=== PATIENT | female | born 1990 | race African-American/Black ===

== ENCOUNTER 2019-01-12 15:54 | Emergency (ER) | payer OTHER ==
[~2019-01-12] VITALS: Ht 160 cm; Wt 117.0 kg
[2019-01-12] MEDS ORDERED: IBUPROFEN 600MG TABLET PO STA (17:17)
[2019-01-12 18:03] VITALS: BP 135/75
== END 2019-01-12 18:04 | disposition home or self-care (01) ==
LOC: ER 15:54
DX: K02.9 Dental caries, unspecified (principal); H92.01 Otalgia, right ear
CPT/HCPCS: 99283

== ENCOUNTER 2019-03-10 11:53 | Emergency (ER) | payer OTHER ==
[~2019-03-10] VITALS: Ht 160 cm; Wt 111.3 kg
[2019-03-10] MEDS ORDERED: DIAZEPAM 5 MG TABLET PO ONE (12:45)
[2019-03-10 13:12] VITALS: BP 125/69
== END 2019-03-10 13:22 | disposition home or self-care (01) ==
LOC: ER 12:06
DX: S39.012A Strain of muscle, fascia and tendon of lower back, initial encounter (principal); Z98.890 Other specified postprocedural states; Z88.6 Allergy status to analgesic agent; V49.59XA Passenger injured in collision with other motor vehicles in traffic accident, initial encounter; Y93.89 Activity, other specified; Y92.89 Other specified places as the place of occurrence of the external cause; Y99.8 Other external cause status
CPT/HCPCS: 99283

== ENCOUNTER 2020-02-06 21:03 | Emergency (ER) | payer MEDICAID, OTHER ==
[~2020-02-06] VITALS: Ht 160 cm; Wt 113.0 kg
[2020-02-06 21:06] VITALS: BP 118/65
[2020-02-06] MEDS ORDERED: ACETAMINOPHEN 325MG TABLET PO ONE (22:30)
== END 2020-02-06 23:34 | disposition left against medical advice (07) ==
LOC: ER 21:03
DX: R22.43 Localized swelling, mass and lump, lower limb, bilateral (principal); Z98.890 Other specified postprocedural states; Z88.8 Allergy status to other drugs, medicaments and biological substances
CPT/HCPCS: 99281